=== PATIENT | female | born 1945 | race Caucasian/White ===

== ENCOUNTER 2018-10-05 03:09 | Outpatient (CLI) | payer MEDICARE, BC | END 2018-10-05 23:59 | disposition home or self-care (01) | LOC: DIABETIC 03:09 | PROVIDERS: ATTEND Family Medicine | DX: E11.9 Type 2 diabetes mellitus without complications (principal) | CPT/HCPCS: G0108 ==

== ENCOUNTER 2018-11-30 00:54 | Outpatient (CLI) | payer MEDICARE, BC | END 2018-11-30 23:59 | disposition home or self-care (01) | LOC: DIABETIC 00:54 | PROVIDERS: ATTEND Family Medicine | DX: E11.9 Type 2 diabetes mellitus without complications (principal); Z71.3 Dietary counseling and surveillance | CPT/HCPCS: G0108 ==

== ENCOUNTER 2022-02-04 08:33 | Day surgery (SDC) | payer BC ==
[2022-02-03 11:42] LABS: BASOPHILS % (AUTO) 0.8 % (0-1); EOSINOPHILS # (AUTO) 0.1 X10'3 (0-0.9); EOSINOPHILS % (AUTO) 2.9 % (0-6); HEMATOCRIT 41.8 % (35.0-45.0); HEMOGLOBIN 14.1 g/dl (12.0-16.0); LYMPHOCYTES # (AUTO) 1.3 X10'3 (1.1-4.8); LYMPHOCYTES % (AUTO) 32.1 % (21-51); MEAN CORPUSCULAR HEMOGLOBIN 28.7 PG (27.0-31.0); MEAN CORPUSCULAR HGB CONC 33.8 g/dL (33.0-36.5); MEAN PLATELET VOLUME 7.8 FL (7.4-10.4); MONOCYTES # (AUTO) 0.4 X10'3 (0-0.9); NEUTROPHILS # (AUTO) 2.3 X10'3 (1.8-7.7); NEUTROPHILS % (AUTO) 54.2 % (42-75); PLATELET COUNT 180 X10'3 (140-440); RED BLOOD COUNT 4.91 X10'6 (4.20-5.60); RED CELL DISTRIBUTION WIDTH 16.3 % (11.5-14.5); WHITE BLOOD COUNT 4.2 X10'3 (4.5-11.0)
[2022-02-03 12:02] LABS: ALBUMIN 3.9 G/DL (3.4-5.0); ANION GAP 10 (8-16); APTT 27 SECONDS (22-32); BLOOD UREA NITROGEN 12 MG/DL (7-18); BUN/CREATININE RATIO 19.4 (6.6-38.0); CALCIUM 8.8 MG/DL (8.5-10.1); CHLORIDE 103 MMOL/L (99-107); CREATININE 0.62 MG/DL (0.40-0.90); GLUCOSE 97 MG/DL (70-104); POTASSIUM 3.8 MMOL/L (3.5-5.1); SODIUM 145 MMOL/L (135-145); TOTAL CARBON DIOXIDE 32.2 MMOL/L (24-32); eGFR > 90 ML/MIN
[~2022-02-04] VITALS: Ht 157.5 cm; Wt 58.8 kg
[2022-02-04] VITALS (11 sets, daily range): BP systolic 134–169; BP diastolic 62–93
[2022-02-04] MEDS ORDERED: diphenhydrAMINE 25mg capsule PO PRN (09:30)
[2022-02-04] MEDS ORDERED: LORazepam 0.5 MG tablet PO PRN (09:30)
[2022-02-04] MEDS ORDERED: CALC-336 PO (09:36)
[2022-02-04] MEDS ORDERED: ZAFI20TA13 PO (09:36)
[2022-02-04] MEDS ORDERED: LISI2.5T14 PO (09:36)
[2022-02-04] MEDS ORDERED: TRIA1TAB3 PO (09:36)
[2022-02-04] MEDS ORDERED: MELA3TAB70 PO (09:36)
[2022-02-04] MEDS ORDERED: FLUT1DIS INH (09:36)
[2022-02-04] MEDS ORDERED: CYAN500T71 PO (09:36)
[2022-02-04] MEDS ORDERED: LOVA40TA2 PO (09:36)
[2022-02-04] MEDS ORDERED: ALBU90AE INH (09:36)
[2022-02-04] MEDS ORDERED: DEXL60CA3 PO (09:36)
[2022-02-04] MEDS ORDERED: FLUT50DI3 IH (09:36)
[2022-02-04] MEDS ORDERED: CHOL20004 PO (09:36)
[2022-02-04] MEDS ORDERED: NITR0.4T51 SL (09:36)
[2022-02-04] MEDS ORDERED: HYDR-3965 PO (09:36)
[2022-02-04] MEDS ORDERED: TRAM1TAB7 PO (09:36)
[2022-02-04] MEDS ORDERED: fentaNYL/PF 50MCG/1 ML 2ML syringe ONE (10:21)
[2022-02-04] MEDS ORDERED: verapamil 2.5 mg/ml inj IV ONE (10:21)
[2022-02-04] MEDS ORDERED: nitroGLYCERIN-Tridil 50MG/D5W 250 ML IV ONE (10:21)
[2022-02-04] MEDS ORDERED: midazolam 1 mg/ML 2ml injection ONE (10:21)
[2022-02-04] MEDS ORDERED: LIDOcaine 1% (10mg/ml) 2ml vial ONE (10:21)
[2022-02-04] MEDS ORDERED: iohexol 350MG/ML 100ml bottle IV ONE (10:22)
[2022-02-04] MEDS ORDERED: heparin 1,000unit/ml 10ml vial 10 ML ONE (10:22)
[2022-02-04] MEDS ORDERED: LIDOcaine 1% 30ml preserv. free vial ONE (11:38)
[2022-02-04 12:11] LABS: ISTAT HGB ART 11.6 g/dl (12.0-16.0); ISTAT Hct ART 34 %PCV (35-48); ISTAT O2 SATURATION ARTERIAL 99 % (95-98); ISTAT SOURCE ART
[2022-02-04 12:12] LABS: ISTAT Hct MIX 35 %PCV (35-48); ISTAT O2 SATURATION MIX VENOUS 65 % (60-80); ISTAT SOURCE VEN
[2022-02-04] MEDS ORDERED: normal saline 1000ml 1,000 ML IV SCH (12:40)
== END 2022-02-04 18:00 | disposition home or self-care (01) ==
LOC: SSTAY O 08:33
PROVIDERS: ATTEND Internal Medicine Cardiovascular Disease
DX: I25.10 Atherosclerotic heart disease of native coronary artery without angina pectoris (principal); I10 Essential (primary) hypertension; E78.5 Hyperlipidemia, unspecified; E11.9 Type 2 diabetes mellitus without complications; I35.0 Nonrheumatic aortic (valve) stenosis; Z79.899 Other long term (current) drug therapy; Z98.890 Other specified postprocedural states; Z79.01 Long term (current) use of anticoagulants; J44.9 Chronic obstructive pulmonary disease, unspecified; K21.9 Gastro-esophageal reflux disease without esophagitis; Z82.49 Family history of ischemic heart disease and other diseases of the circulatory system; Z83.3 Family history of diabetes mellitus; Z80.8 Family history of malignant neoplasm of other organs or systems
CPT/HCPCS: 36415; 76937; 80048; 82803; 82948; 85014; 85025; 85610; 85730; 93005; 93460; 99152; 99153; C1751; C1769; C1894; J1644; J2250; J3010; J3490; J7030; Q0163; Q9967; A4620; A5120; A6258; A6402

== ENCOUNTER 2022-02-13 08:05 | Outpatient (CLI) | payer BC ==
[~2022-02-13 08:05] MED LIST: ALBU90AE INH; CALC-336 PO; CHOL20004 PO; CYAN500T71 PO; DEXL60CA3 PO; FLUT1DIS INH; FLUT50DI3 IH; HYDR-3965 PO; LISI2.5T14 PO; LOVA40TA2 PO; MELA3TAB70 PO; NITR0.4T51 SL; TRAM1TAB7 PO; TRIA1TAB3 PO; ZAFI20TA13 PO
== END 2022-02-13 23:59 | disposition home or self-care (01) ==
LOC: VAS 08:05
PROVIDERS: ATTEND Internal Medicine Cardiovascular Disease
DX: R22.41 Localized swelling, mass and lump, right lower limb (principal); I72.8 Aneurysm of other specified arteries
CPT/HCPCS: 93926; 93971

== ENCOUNTER 2022-02-13 09:21 | Emergency (ER) | payer BC ==
[~2022-02-13] VITALS: Ht 157.5 cm; Wt 65.0 kg
[2022-02-13] VITALS (9 sets, daily range): BP systolic 153–193; BP diastolic 70–102
--- NOTE | 2022-02-13 11:27 | NUR ---
Per , pt is diabetic and he is concerned as she has not eaten today. Pt states her blood sugar "may be a little low" based on how she is feeling. Accucheck to be done.
[2022-02-13] MEDS ORDERED: Thrombin (Bovine) 5,000 unit vial TP ONE (12:55)
--- NOTE | 2022-02-13 13:07 | NUR ---
Pt to IR for procedure.
--- NOTE | 2022-02-13 14:06 | NUR ---
Returned from IR. Pt tolerated procedure well. Per IR team, pt to lie flat for two hours; then discharged if no complication.
== END 2022-02-13 16:16 | disposition home or self-care (01) ==
LOC: ER 09:24
DX: I72.4 Aneurysm of artery of lower extremity (principal)
CPT/HCPCS: 36002; 76937; 82948; 99285

== ENCOUNTER 2022-05-01 09:27 | Outpatient (CLI) | payer BC ==
[2022-05-01 10:09] LABS: BASOPHILS % (AUTO) 0.8 % (0-1); EOSINOPHILS # (AUTO) 0.1 X10'3 (0-0.9); EOSINOPHILS % (AUTO) 2.9 % (0-6); HEMATOCRIT 40.5 % (35.0-45.0); HEMOGLOBIN 13.4 g/dl (12.0-16.0); LYMPHOCYTES # (AUTO) 1.1 X10'3 (1.1-4.8); MEAN CORPUSCULAR HEMOGLOBIN 29.3 PG (27.0-31.0); MEAN CORPUSCULAR HGB CONC 33.1 g/dL (33.0-36.5); MEAN CORPUSCULAR VOLUME 88.4 FL (78-98); MEAN PLATELET VOLUME 8.6 FL (7.4-10.4); MONOCYTES # (AUTO) 0.3 X10'3 (0-0.9); MONOCYTES % (AUTO) 8.7 % (2-12); NEUTROPHILS % (AUTO) 57.6 % (42-75); PLATELET COUNT 160 X10'3 (140-440); RED BLOOD COUNT 4.58 X10'6 (4.20-5.60); RED CELL DISTRIBUTION WIDTH 14.7 % (11.5-14.5); WHITE BLOOD COUNT 3.5 X10'3 (4.5-11.0)
[2022-05-01 10:11] LABS: APTT 25 SECONDS (22-32)
[2022-05-01 10:13] LABS: ALANINE AMINOTRANSFERASE 14 U/L (12-78); ALBUMIN 3.8 G/DL (3.4-5.0); ALBUMIN/GLOBULIN RATIO 1.2 (1.1-1.5); ALKALINE PHOSPHATASE 58 IU/L (46-116); ANION GAP 10 (8-16); ASPARTATE AMINO TRANSFERASE 18 U/L (10-37); BILIRUBIN,TOTAL 0.5 MG/DL (0.1-1.0); BLOOD UREA NITROGEN 15 MG/DL (7-18); BUN/CREATININE RATIO 23.1 (6.6-38.0); CALCIUM 8.7 MG/DL (8.5-10.1); CHLORIDE 107 MMOL/L (99-107); CREATININE 0.65 MG/DL (0.40-0.90); GLUCOSE 105 MG/DL (70-104); POTASSIUM 3.9 MMOL/L (3.5-5.1); SODIUM 145 MMOL/L (135-145); TOTAL CARBON DIOXIDE 28.5 MMOL/L (24-32); TOTAL PROTEIN 7.1 G/DL (6.4-8.2); eGFR 88 ML/MIN
[2022-05-01] MEDS ORDERED: IODIXANOL 320 MG/ML INFUS..BTL 100ML IV ONE (10:47)
== END 2022-05-01 23:59 | disposition home or self-care (01) ==
LOC: RAD 09:27
PROVIDERS: ATTEND Internal Medicine Cardiovascular Disease
DX: Z01.818 Encounter for other preprocedural examination (principal); I08.0 Rheumatic disorders of both mitral and aortic valves; J94.8 Other specified pleural conditions; I70.0 Atherosclerosis of aorta; K76.0 Fatty (change of) liver, not elsewhere classified; K57.30 Diverticulosis of large intestine without perforation or abscess without bleeding; K42.9 Umbilical hernia without obstruction or gangrene; K44.9 Diaphragmatic hernia without obstruction or gangrene; M41.85 Other forms of scoliosis, thoracolumbar region; M47.815 Spondylosis without myelopathy or radiculopathy, thoracolumbar region; M47.818 Spondylosis without myelopathy or radiculopathy, sacral and sacrococcygeal region; Q25.46 Tortuous aortic arch; I25.10 Atherosclerotic heart disease of native coronary artery without angina pectoris; I65.29 Occlusion and stenosis of unspecified carotid artery; Z79.899 Other long term (current) drug therapy
CPT/HCPCS: 36415; 71046; 71275; 74174; 80053; 85025; 85610; 85730; 93880; 94010; 94727; 94729; J3490; Q9967

== ENCOUNTER 2022-06-18 05:21 | Inpatient (IN) | payer BC ==
[2022-06-09 15:40] LABS: CLARITY,URINE CLEAR (Clear); COLOR,URINE YELLOW (Yellow); GLUCOSE, URINE NEGATIVE (Neg); KETONES,URINE NEGATIVE (Neg); LEUKOCYTE ESTERASE ,URINE NEGATIVE (Neg); NITRITES, URINE NEGATIVE (Neg); OCCULT BLOOD,URINE TRACE-INTACT (Neg); PROTEIN,URINE NEGATIVE (Neg)
[2022-06-09 15:42] LABS: BASOPHILS % (AUTO) 0.7 % (0-1); EOSINOPHILS # (AUTO) 0.1 X10'3 (0-0.9); EOSINOPHILS % (AUTO) 2.1 % (0-6); LYMPHOCYTES # (AUTO) 1.1 X10'3 (1.1-4.8); LYMPHOCYTES % (AUTO) 23.6 % (21-51); MEAN CORPUSCULAR HEMOGLOBIN 28.7 PG (27.0-31.0); MEAN CORPUSCULAR HGB CONC 33.1 g/dL (33.0-36.5); MEAN CORPUSCULAR VOLUME 86.5 FL (78-98); MEAN PLATELET VOLUME 8.3 FL (7.4-10.4); MONOCYTES # (AUTO) 0.5 X10'3 (0-0.9); NEUTROPHILS # (AUTO) 2.9 X10'3 (1.8-7.7); NEUTROPHILS % (AUTO) 62.6 % (42-75); PRE OP HEMATOCRIT 39.5 % (35.0-45.0); PRE OP HEMOGLOBIN 13.1 g/dL (12.0-16.0); PRE OP PLATELET COUNT 167 X10'3 (140-440); RED BLOOD COUNT 4.57 X10'6 (4.20-5.60); RED CELL DISTRIBUTION WIDTH 14.1 % (11.5-14.5)
[2022-06-09 15:51] LABS: UA COLLECTION TYPE CLN CATCH MIDSTREAM
[2022-06-09 15:54] LABS: WBC,URINE 0-4 /HPF (0-4)
[2022-06-09 15:55] LABS: BACTERIA,URINE NONE SEEN /HPF (Neg); RBC,URINE NONE SEEN /HPF (0-2); SQUAMOUS EPITHELIAL CELL,UR FEW /LPF (FEW)
[2022-06-09 15:57] LABS: PRE OP INR 1.1 INR; PRE OP PROTIME 11.4 SECONDS (9.0-12.0)
[2022-06-09 16:05] LABS: ALBUMIN/GLOBULIN RATIO 1.3 (1.1-1.5); ALKALINE PHOSPHATASE 63 IU/L (46-116); BLOOD UREA NITROGEN 12 MG/DL (7-18); CALCIUM 9.2 MG/DL (8.5-10.1); CHLORIDE 104 MMOL/L (99-107); PRE OP ALT 16 U/L (30-65); PRE OP ANION GAP 9 (8-16); PRE OP AST 16 U/L (10-37); PRE OP BILIRUB, TOTAL 0.5 MG/DL (0.0-1.0); PRE OP GLUCOSE 123 MG/DL (70-104); PRE OP POTASSIUM 3.5 MMOL/L (3.4-5.1); PRE OP SODIUM 143 MMOL/L (135-145); TOTAL CARBON DIOXIDE 29.9 MMOL/L (24-32); TOTAL PROTEIN 7.1 G/DL (6.4-8.2); eGFR > 90 ML/MIN
[2022-06-09 16:19] LABS: HEMOGLOBIN A1C 5.9 % (4.5-6.2)
[~2022-06-18] VITALS: Ht 157.5 cm; Wt 58.5 kg
[2022-06-18] VITALS (30 sets, daily range): BP systolic 95–160; BP diastolic 41–99
[~2022-06-18 05:21] MED LIST changes: -FLUT50DI3 IH; -HYDR-3965 PO; +METF-436 PO; +QUET25TA36 PO; -TRAM1TAB7 PO; -ZAFI20TA13 PO; +ringers solution, lacted 1,000 ML IV SCH
[2022-06-18] MEDS ORDERED: ondansetron/PF 4mg/2ml inj IV PRN ×3 (05:30→08:15)
[2022-06-18] MEDS ORDERED: aspirin 325mg tablet PO ONE (05:30)
[2022-06-18] MEDS ORDERED: famotidine 20mg tablet PO ONE (05:30)
[2022-06-18] MEDS ORDERED: vancomycin/NS 1 GM in NS 250 ML IV ONE (05:30)
[2022-06-18] MEDS ORDERED: phenylephrine inj 50 MG in normal saline 250ml IV solN IV SCH (05:30)
[2022-06-18] MEDS ORDERED: ceFAZolin inj. 2,000 MG in dextrose 5%-water 100 ML IV ONE (05:30)
[2022-06-18] MEDS ORDERED: nitroPRUSSIDE (NIPRIDE) (200MCG/ML) 100ML Drip IV SCH (05:30)
[2022-06-18] MEDS ORDERED: heparin 1,000 UNITS/NS 500ml 1,500 ML ONE (06:15)
[2022-06-18] MEDS ORDERED: LIDOcaine 1% 30ml preserv. free vial ONE ×2 (06:15→06:46)
[2022-06-18] MEDS ORDERED: iohexol 350MG/ML 100ml bottle IV ONE (06:15)
[2022-06-18] MEDS ORDERED: protamine sulfate 10mg/ml inj. ONE (06:41)
[2022-06-18] MEDS ORDERED: midazolam 1 mg/ML 2ml injection ONE (07:04)
[2022-06-18] MEDS ORDERED: fentaNYL/PF 50MCG/1 ML 2ML syringe ONE (07:04)
[2022-06-18] MEDS ORDERED: iohexol 350 MG/ML 50ML vial IV ONE (07:17)
[2022-06-18] MEDS ORDERED: ePHEDrine 50MG/ML INJ. ONE (07:32)
[2022-06-18] MEDS ORDERED: propofol inj 20 ML IV ONE ×2 (07:32)
[2022-06-18] MEDS ORDERED: heparin 1,000unit/ml 10ml vial 10 ML ONE (07:32)
[2022-06-18] MEDS ORDERED: meperidine/PF 25mg/ml syringe IV PRN ×3 (07:50)
[2022-06-18] MEDS ORDERED: proCHLORperazine 10 MG/2 ml inj IV PRN ×2 (07:50→08:15)
[2022-06-18] MEDS ORDERED: morphine 4 MG/ML inj SYRINge IV PRN (07:50)
[2022-06-18] MEDS ORDERED: morphine 2 MG/ML inj. syringe IV PRN (07:50)
[2022-06-18] MEDS ORDERED: ringers solution, lacted 1,000 ML IV SCH (07:50)
[2022-06-18] MEDS ORDERED: potassium Cl 40MEQ/270ML bag 250 ML IV PRN (08:15)
[2022-06-18] MEDS ORDERED: DEXTROSE 15 GM of carb/4 tabs (each vial/BOTTLE has 4 tablets) PO PRN ×2 (08:15)
[2022-06-18] MEDS ORDERED: labetalol 20mg/4ml (5mg/ml) syringe IV PRN (08:15)
[2022-06-18] MEDS ORDERED: magnesium 2GM in 50ml NS 50 ML IV PRN (08:15)
[2022-06-18] MEDS ORDERED: insulin regular, human U-100 3ml vial - multi-dose SQ SCH (08:15)
[2022-06-18] MEDS ORDERED: insulin Lispro (HumaLOG) vial - multi-dose SQ SCH (08:15)
[2022-06-18] MEDS ORDERED: hydrALAZINE 20mg/ml inj. IV PRN (08:15)
[2022-06-18] MEDS ORDERED: diphenhydrAMINE 25mg capsule PO PRN (08:15)
[2022-06-18] MEDS ORDERED: potassium CL 10mEq/100ml bag 100 ML IV PRN (08:15)
[2022-06-18] MEDS ORDERED: magnesium 4gm in 100ml NS 100 ML IV PRN (08:15)
[2022-06-18] MEDS ORDERED: ALPRAZolam 0.25mg tablet PO PRN (08:15)
[2022-06-18] MEDS ORDERED: potassium Cl 20 mEq SR tablet PO PRN (08:15)
[2022-06-18] MEDS ORDERED: potassium Cl 20mEq/100mL bag 100 ML IV PRN (08:15)
[2022-06-18] MEDS ORDERED: MESSAGE TO PHARMACY PO ONE (08:15)
[2022-06-18] MEDS ORDERED: docusate sod 100mg capsule PO PRN (08:15)
[2022-06-18] MEDS ORDERED: pantoprazole 40mg Tablet.DR PO PRN (08:15)
[2022-06-18] MEDS ORDERED: potassium Cl 40MEQ/1/2NS 520ml 520 ML IV PRN (08:15)
[2022-06-18] MEDS ORDERED: acetaminophen 325mg tablet PO PRN (08:15)
[2022-06-18] MEDS ORDERED: dextrose 50%-water 50ml dispensing syringe IV PRN ×2 (08:15)
[2022-06-18] MEDS ORDERED: glucagon, human recombinant 1mg kit SUBCUT PRN (08:15)
--- NOTE | 2022-06-18 08:21 | NUR ---
Received from OR via BED, accompanied by Anesthesiologist DR. RAMÍREZ and report given by Anesthesiologist AND OR NURSE. PT ARRIVED DROWSY BUT ABLE TO RESPOND TO VERBAL STIMULI ON ROOM AIR. VSS. PT HAS 18 G IV TO LEFT AC AND ART LINE TO LEFT WRIST AND PRESSURE DEVICE INTACT. PT HAS DRESSING TO BILATERAL GROIN THAT IS C/D/I, NO SWELLING OR BLEEDING NOTED. LR AND NIPRIDE CURRENTLY RUNNING. NEURO ASSESSMENT COMPLETED. PUSH, PULL, END FINDER TWISTING DEPARTMENT, SMILE ALL WITHIN NORMAL LIMITS. BILATERAL PEDAL PULSES STRONG. VSS. WILL CONTINUE TO MONITOR AND RECHECK GROIN SITES. Addendum: 06/18/22 at 0839 by Pranay Vieira RN Amended: Links added.
--- NOTE | 2022-06-18 09:00 | NUR ---
DISCONTINUE LEFT RADIAL ARTLINE. NO S/S OF HEMATOMA OR BLEEDING NOTED. HEMOSTASIS WAS OBTAINED AFTER 15 MINUTES. APPLIED GAUZE AND ACEWRAP. PATIENT TOLERATED PROCEDURE WELL.
--- NOTE | 2022-06-18 10:56 | NUR ---
PATIENT HAS MET ALL CRITERIA FOR TRANSFER TO THE SURGICAL FLOOR. VSS. DRESSINGS INTACT. BED LOW, CALL LIGHT PRESENT AND 2 RAILS UP. RN PRESENT TO ACCEPT CARE OF PATIENT AND REPORT HAS BEEN CALLED. ALL QUESTIONS ANSWERED TO ACCEPTING RN. Addendum: 06/18/22 at 1111 by Pranay Vieira RN Amended: Links added.
[2022-06-18] MEDS: normal saline 1000ml 1,000 ML IV SCH ×2 (11:34→18:15)
--- NOTE | 2022-06-18 11:34 | NUR ---
pt settled into room. Pt unable to void with pen shaw or wick. strait cath expelled 550 clear yellow urine. Warm blankets applied. Family at bedside. Pt c/o back pain chronic 12/24. Will medicate and monitor. Bilat Groin sites CDI. Bruise noted to left wrist. Addendum: 06/18/22 at 1137 by Maria E Howard RN Amended: Links added.
[2022-06-18] MEDS: HYDROcodone/acetaminophen 5mg/325mg tablet PO PRN ×2 (12:11→16:56)
--- NOTE | 2022-06-18 13:36 | NUR ---
Noted pt on carb controlled diet no hx DM A1C 5.9% this admit per EMR. RD attempted to contact floor regarding diet change to heart healthy since carb control restriction not indicated but no answer. Would benefit from change to heart healthy diet or, if initial meal intake poor, regular diet. Pending PO intake trends documentation this admit. Addendum: 06/18/22 at [address] Amended: Links added.
[2022-06-18] MEDS ORDERED: albuterol 2.5 MG/3 ML nebule NEB PRN (14:50)
[2022-06-18] MEDS ORDERED: nitroGLYCERIN 0.4mg SUBLingual tab SL PRN (14:50)
[2022-06-18] MEDS: ceFAZolin 1GM/D5W- ADD-VANTAGE 50 ML IV SCH (15:51)
[2022-06-18] MEDS ORDERED: ASPI-1265 PO (16:10)
[2022-06-18] MEDS: sod chloride 0.9% 10ml flush syringe IV SCH (16:29)
--- NOTE | 2022-06-18 18:39 | NUR ---
Problems reprioritized. Patient report given, questions answered & plan of care reviewed with Komal WAN. Bedside report completed. Grion sites remain CDI. Call light in reach. Addendum: 06/18/22 at 1840 by Maria E Howard RN Amended: Links added.
[2022-06-18] MEDS: budesonide 0.5mg/2ml UD nebule IH SCH (20:20)
[2022-06-18] MEDS: albuterol 2.5 MG/3 ML nebule NEB SCH (20:20)
[2022-06-18] MEDS: calcium carbonate 500mg tablet PO SCH (20:28)
[2022-06-18] MEDS: vancomycin/NS 1 GM ADD-VANTAGE 250 ML IV SCH (20:29)
[2022-06-18] MEDS ORDERED: QUEtiapine 25mg tablet PO SCH (21:00)
[2022-06-18] MEDS ORDERED: Melatonin 3mg tablet PO SCH (21:00)
[2022-06-18] MEDS ORDERED: insulin glargine (Lantus) pen - multi-dose SQ SCH (21:00)
[2022-06-19] MEDS: sod chloride 0.9% 10ml flush syringe IV SCH ×2 (00:41→08:00)
[2022-06-19] MEDS: ceFAZolin 1GM/D5W- ADD-VANTAGE 50 ML IV SCH ×2 (00:41→07:55)
[2022-06-19 02:00] VITALS: BP 100/56
[2022-06-19] MEDS: albuterol 2.5 MG/3 ML nebule NEB SCH ×2 (02:00→08:22)
[2022-06-19] MEDS: normal saline 1000ml 1,000 ML IV SCH (04:15)
[2022-06-19 05:31] VITALS: BP 127/63
--- NOTE | 2022-06-19 06:20 | NUR ---
Patient in room PCU 3027. I have received report from Komal WAN and had the opportunity to ask questions and assume patient care. Bedside report completed. [facility] lucero MENARD, WARREN. Call light in reach. Addendum: 06/19/22 at 0621 by Maria E Howard RN Amended: Links added.
[2022-06-19] MEDS: calcium carbonate 500mg tablet PO SCH (07:57)
[2022-06-19] MEDS ORDERED: lisinopril 2.5mg tablet PO SCH (08:00)
[2022-06-19] MEDS: vancomycin/NS 1 GM ADD-VANTAGE 250 ML IV SCH (08:00)
[2022-06-19] MEDS ORDERED: cholecalciferol (vitamin D3) 1,000 unit (25mcg) tablet PO SCH (08:00)
[2022-06-19] MEDS ORDERED: non-formulary drug (Dexlansoprazole (Dexilant) 1 CAP) PO SCH (08:00)
[2022-06-19] MEDS ORDERED: atorvastatin 10mg tablet PO SCH (08:00)
[2022-06-19] MEDS ORDERED: triamterene/HCTZ 37.5/25mg tablet PO SCH (08:00)
[2022-06-19] MEDS ORDERED: cyanocobalamin 500mcg tablet PO SCH (08:00)
[2022-06-19] MEDS: budesonide 0.5mg/2ml UD nebule IH SCH (08:23)
[2022-06-19 08:37] LABS: BASOPHILS % (AUTO) 0.4 % (0-1); EOSINOPHILS # (AUTO) 0.1 X10'3 (0-0.9); EOSINOPHILS % (AUTO) 2.1 % (0-6); HEMATOCRIT 34.5 % (35.0-45.0); HEMOGLOBIN 11.6 g/dl (12.0-16.0); LYMPHOCYTES # (AUTO) 0.8 X10'3 (1.1-4.8); LYMPHOCYTES % (AUTO) 17.2 % (21-51); MEAN CORPUSCULAR HGB CONC 33.6 g/dL (33.0-36.5); MEAN CORPUSCULAR VOLUME 86.4 FL (78-98); MEAN PLATELET VOLUME 8.5 FL (7.4-10.4); MONOCYTES # (AUTO) 0.5 X10'3 (0-0.9); MONOCYTES % (AUTO) 11.5 % (2-12); NEUTROPHILS % (AUTO) 68.8 % (42-75); PLATELET COUNT 119 X10'3 (140-440); RED BLOOD COUNT 3.99 X10'6 (4.20-5.60); RED CELL DISTRIBUTION WIDTH 14.5 % (11.5-14.5); WHITE BLOOD COUNT 4.4 X10'3 (4.5-11.0)
[2022-06-19 09:01] LABS: ALANINE AMINOTRANSFERASE 15 U/L (12-78); ALBUMIN 3.3 G/DL (3.4-5.0); ALBUMIN/GLOBULIN RATIO 1.2 (1.1-1.5); ALKALINE PHOSPHATASE 53 IU/L (46-116); ANION GAP 7 (8-16); ASPARTATE AMINO TRANSFERASE 19 U/L (10-37); BILIRUBIN,TOTAL 0.7 MG/DL (0.1-1.0); BLOOD UREA NITROGEN 9 MG/DL (7-18); BUN/CREATININE RATIO 13.8 (6.6-38.0); CALCIUM 8.9 MG/DL (8.5-10.1); CHLORIDE 108 MMOL/L (99-107); CREATININE 0.65 MG/DL (0.40-0.90); GLUCOSE 107 MG/DL (70-104); MAGNESIUM 2.1 MG/DL (1.5-2.4); POTASSIUM 3.8 MMOL/L (3.5-5.1); SODIUM 144 MMOL/L (135-145); TOTAL CARBON DIOXIDE 28.7 MMOL/L (24-32); eGFR 88 ML/MIN
[2022-06-19 11:30] VITALS: BP 129/95
--- NOTE | 2022-06-19 14:02 | NUR ---
all written and verbal orders for D/C given. All questions answered. Pt stated she had all belongings. Bilat Groin sites CDI. no hematomas. Pt left hospital via W?C home with angela. Addendum: 06/19/22 at 1405 by Maria E Howard RN Amended: Links added.
== END 2022-06-19 14:25 | disposition home or self-care (01) | DRG 266 ==
LOC: PAS IN 05:21 → EDSTATUS 07:30 → PCU 3S 11:20
PROVIDERS: ADMIT Internal Medicine Cardiovascular Disease; ATTEND Internal Medicine Cardiovascular Disease
PROC: B41D1ZZ Fluoroscopy of Aorta and Bilateral Lower Extremity Arteries using Low Osmolar Contrast (ICD-10-PCS; 2022-06-18)
PROC: 02RF38Z Replacement of Aortic Valve with Zooplastic Tissue, Percutaneous Approach (ICD-10-PCS; principal; 2022-06-18 07:02)
DX: I35.2 Nonrheumatic aortic (valve) stenosis with insufficiency (principal); Z00.6 Encounter for examination for normal comparison and control in clinical research program; I50.33 Acute on chronic diastolic (congestive) heart failure; E11.9 Type 2 diabetes mellitus without complications; E78.5 Hyperlipidemia, unspecified; G89.4 Chronic pain syndrome; I11.0 Hypertensive heart disease with heart failure; J44.9 Chronic obstructive pulmonary disease, unspecified; Z77.22 Contact with and (suspected) exposure to environmental tobacco smoke (acute) (chronic)
CPT/HCPCS: 33361; 36415; 71045; 71046; 76937; 80053; 81001; 82948; 83036; 83735; 83880; 85025; 85347; 85610; 85730; 86885; 86900; 86901; 86920; 87081; 93005; 93308; 94640; 94760; A4618; A6258; A6449; C1756; C1760; C1769; C1892; C1894; G0378; J0360; J0690; J1644; J1815; J2250; J2370; J2704; J2720; J3010; J3370; J3490; J7030; J7040; J7050; J7060; J7120; Q9967

== ENCOUNTER → 2022-08-03 | Outpatient (CLI) | payer BC ==
[~2022-08-03] MED LIST changes: -ringers solution, lacted 1,000 ML IV SCH
== END | disposition home or self-care (01) ==
LOC: CARD DIAG 08:58
PROVIDERS: ATTEND Internal Medicine Cardiovascular Disease
DX: I08.1 Rheumatic disorders of both mitral and tricuspid valves (principal); I77.89 Other specified disorders of arteries and arterioles
CPT/HCPCS: 93005; 93306

== ENCOUNTER 2022-09-14 06:43 | Day surgery (SDC) | payer BC ==
[2022-09-10 16:18] LABS: BASOPHILS % (AUTO) 0.5 % (0-1); EOSINOPHILS # (AUTO) 0.2 X10'3 (0-0.9); EOSINOPHILS % (AUTO) 3.3 % (0-6); LYMPHOCYTES # (AUTO) 1.5 X10'3 (1.1-4.8); LYMPHOCYTES % (AUTO) 27.2 % (21-51); MEAN CORPUSCULAR HEMOGLOBIN 28.9 PG (27.0-31.0); MEAN CORPUSCULAR HGB CONC 33.3 g/dL (33.0-36.5); MEAN CORPUSCULAR VOLUME 86.7 FL (78-98); MEAN PLATELET VOLUME 8.1 FL (7.4-10.4); MONOCYTES # (AUTO) 0.5 X10'3 (0-0.9); MONOCYTES % (AUTO) 9.9 % (2-12); NEUTROPHILS # (AUTO) 3.2 X10'3 (1.8-7.7); NEUTROPHILS % (AUTO) 59.1 % (42-75); PRE OP HEMATOCRIT 41.9 % (35.0-45.0); PRE OP HEMOGLOBIN 13.9 g/dL (12.0-16.0); PRE OP PLATELET COUNT 164 X10'3 (140-440); RED BLOOD COUNT 4.83 X10'6 (4.20-5.60); RED CELL DISTRIBUTION WIDTH 15.9 % (11.5-14.5)
[2022-09-10 16:27] LABS: ALBUMIN 4.3 G/DL (3.4-5.0); ALBUMIN/GLOBULIN RATIO 1.3 (1.1-1.5); ALKALINE PHOSPHATASE 61 IU/L (46-116); BLOOD UREA NITROGEN 14 MG/DL (7-18); BUN/CREATININE RATIO 16.5 (10.0-20.0); CALCIUM 9.3 MG/DL (8.5-10.1); CHLORIDE 103 MMOL/L (99-107); CREATININE 0.85 MG/DL (0.40-0.90); PRE OP ALT 21 U/L (30-65); PRE OP ANION GAP 6 (8-16); PRE OP AST 26 U/L (10-37); PRE OP BILIRUB, TOTAL 0.3 MG/DL (0.0-1.0); PRE OP GLUCOSE 118 MG/DL (70-104); PRE OP POTASSIUM 3.7 MMOL/L (3.4-5.1); PRE OP SODIUM 139 MMOL/L (135-145); TOTAL CARBON DIOXIDE 30.3 MMOL/L (24-32); TOTAL PROTEIN 7.6 G/DL (6.4-8.2); eGFR 65 ML/MIN
[2022-09-14] VITALS (7 sets, daily range): BP systolic 148–165; BP diastolic 69–75
[~2022-09-14] VITALS: Ht 152.4 cm; Wt 59.0 kg
[~2022-09-14 06:43] MED LIST changes: +ACET-1025 PO; +ASPI-1265 PO; -CALC-336 PO; -CYAN500T71 PO; +cefazolin 2gm/D5W 100mL 100 ML IV ONE; +famotidine 20mg tablet PO ONE; +ringers solution, lacted 1,000 ML IV SCH
[2022-09-14] MEDS ORDERED: BUPIVAcaine/PF 2.5mg/ml (0.25%) 10ml vial ONE (06:44)
[2022-09-14] MEDS ORDERED: fentaNYL/PF 50MCG/1 ML 2ML syringe ONE ×2 (08:18→09:06)
[2022-09-14] MEDS ORDERED: midazolam 1 mg/ML 2ml injection ONE (08:19)
[2022-09-14] MEDS ORDERED: ketorolac trometh. 30mg/ml inj. ONE (08:39)
[2022-09-14] MEDS ORDERED: MIDAZolam 1 MG/ML 5ML VIAL ONE (09:07)
[2022-09-14] MEDS ORDERED: LIDOcaine 2% (20mg/ml) 5ml vial ONE ×2 (09:36)
[2022-09-14] MEDS ORDERED: BUPIVAcaine/PF 2.5 mg/ml (0.25%) 30ml vial IJ ONE (09:49)
[2022-09-14] MEDS ORDERED: ringers solution, lacted 1,000 ML IV SCH (10:00)
[2022-09-14] MEDS ORDERED: morphine 4 MG/ML inj SYRINge IV PRN (10:00)
[2022-09-14] MEDS ORDERED: ondansetron/PF 4mg/2ml inj IV PRN (10:00)
[2022-09-14] MEDS ORDERED: proCHLORperazine 10 MG/2 ml inj IV PRN (10:00)
[2022-09-14] MEDS ORDERED: meperidine/PF 25mg/ml syringe IV PRN ×3 (10:00)
[2022-09-14] MEDS ORDERED: morphine 2 MG/ML inj. syringe IV PRN (10:00)
[2022-09-14] MEDS ORDERED: ROPIVAcaine 0.5% (5mg/ml) 30ml vial ONE (10:31)
--- NOTE | 2022-09-14 10:34 | NUR ---
Received from OR via ROSS IN STABLE CONDITION , accompanied by Anesthesiologist and APPLIQUER report given by APPLIQUER AND Anesthesiolgist. Addendum: 09/14/22 at 1045 by Coreen Quinones RN Amended: Links added.
--- NOTE | 2022-09-14 11:34 | NUR ---
PATIENT DISCHARGED FROM PACU IN STABLE CONDITION AFTER WRITTEN AND VERBAL DISCHARGE INSTRUCTIONS GIVEN. PATIENT GAVE VERBAL UNDERSTANDING OF INSTRUCTIONS. PATIENT LEFT FACILITY VIA WHEELCHAIR WITH RN. Addendum: 09/14/22 at 1312 by Coreen Quinones RN Amended: Links added.
== END 2022-09-14 11:34 | disposition home or self-care (01) ==
LOC: PAS 06:43
PROVIDERS: ATTEND Orthopaedic Surgery Hand Surgery
DX: M19.031 Primary osteoarthritis, right wrist (principal); M18.0 Bilateral primary osteoarthritis of first carpometacarpal joints; I35.0 Nonrheumatic aortic (valve) stenosis; E11.9 Type 2 diabetes mellitus without complications; I10 Essential (primary) hypertension; K21.9 Gastro-esophageal reflux disease without esophagitis; E78.5 Hyperlipidemia, unspecified; I45.10 Unspecified right bundle-branch block; G89.18 Other acute postprocedural pain; Z95.2 Presence of prosthetic heart valve; Z98.890 Other specified postprocedural states; Z79.84 Long term (current) use of oral hypoglycemic drugs; Z79.899 Other long term (current) drug therapy; Z82.49 Family history of ischemic heart disease and other diseases of the circulatory system; Z80.9 Family history of malignant neoplasm, unspecified
CPT/HCPCS: 25820; 36415; 64417; 80053; 82948; 85025; C1713; J0690; J1885; J2250; J2795; J3010; J3490; J7030; J7120; Z7506; Z7508; Z7512; A4565; A4618; A7000

== ENCOUNTER 2025-03-06 13:23 | Outpatient (CLI) | payer BC ==
[~2025-03-06 13:23] MED LIST changes: -cefazolin 2gm/D5W 100mL 100 ML IV ONE; -famotidine 20mg tablet PO ONE; -ringers solution, lacted 1,000 ML IV SCH
--- NOTE | 2025-03-06 15:07 | RADIOLOGY REPORT ---
CLINICAL HISTORY: TRANSIENT ALTERATION OF AWARENESS TECHNIQUE: Routine multiplanar imaging of the brain was performed without gadolinium contrast. COMPARISON: None FINDINGS: There is no abnormal restricted diffusion to suggest acute infarction. There are scattered punctate foci of T2 hyperintensity within the white matter both cerebral hemispheres, which are most compatible with a minimal burden of nonspecific chronic small vessel ischemic change. There is no evidence for acute ischemic changes, mass, mass effect, or extra- axial fluid collection. There is no hydrocephalus or midline shift. The cerebral sulci and subarachnoid cisterns are not effaced. There are small bilateral mastoid effusions. There has been bilateral cataract extraction The midline structures, including the corpus callosum, are unremarkable. The intracranial flow voids are maintained. IMPRESSION: No acute intracranial abnormality seen. No evidence for acute infarct. Small bilateral mastoid effusions. Bilateral cataract fraction
== END 2025-03-06 23:59 | disposition home or self-care (01) ==
LOC: MRI 13:23
PROVIDERS: ATTEND Nurse Practitioner Family
DX: H74.8X3 Other specified disorders of middle ear and mastoid, bilateral (principal); H26.9 Unspecified cataract; R40.4 Transient alteration of awareness
CPT/HCPCS: 70551